=== PATIENT | female | born 1945 | race Caucasian/White ===

== ENCOUNTER → 2018-05-03 18:41 | Outpatient (REF) | payer MEDICARE, MEDICAID, SELFPAY ==
[2018-05-03 20:08] LABS: Uric Acid 3.8 mg/dL (2.5-6.2)
== END ==
LOC: LAB 18:41
PROVIDERS: Visit Provider Family Medicine Geriatric Medicine
DX: M10.09 Idiopathic gout, multiple sites (principal)
CPT/HCPCS: 36415; 84550